=== PATIENT | female | born 1990 | race African-American/Black ===

== ENCOUNTER 2020-07-14 03:54 | Inpatient (IN) ==
[2020-07-14] MEDS ORDERED: ONDANSETRON 4 MG/2 ML VIAL IV PRN ×2 (04:15→06:55)
[2020-07-14] MEDS ORDERED: MEPERIDINE 50 MG/1 ML VIAL IV PRN (04:15)
[2020-07-14] MEDS ORDERED: BUTORPHANOL 2 MG/ML VIAL IV PRN (04:15)
[2020-07-14] MEDS: LACTATED RINGERS 1,000 ML IV SCH ×2 (04:20→06:32)
[2020-07-14] MEDS ORDERED: AMPICILLIN 2,000 MG VIAL ONE (04:29)
[2020-07-14] MEDS ORDERED: AMPICILLIN INJ 2,000 MG in SODIUM CHLORIDE 0.9% 100 ML IV ONE (04:30)
[2020-07-14 05:13] LABS: Basophils % 0.1 % (0.0-0.8); Eosinophils % 0.4 % (0.00-10.9); Hematocrit 37.6 VOL% (35.7-47.0); Immature Granulocytes % 0.5 %; Immature Granulocytes Absolute 0.04 #; Lymphocytes % 24.7 % (21.3-54.2); Mean Corpuscular HGB Conc 31.9 GM/DL (32-36); Mean Corpuscular Volume 85.5 FL (87-102); Mean Platelet Volume 11.7 FL (9.6-12.0); Monocytes % 8.4 % (1.7-12.7); Neutrophils % 65.9 % (38.7-73.9); Platelet Count 218 T/CUMM (130-400); White Blood Count 8.2 T/CUMM (4-12)
[2020-07-14 05:36] LABS: Albumin 2.6 G/DL (3.4-5.0); Calcium 9.9 MG/DL (8.5-10.1); Osmolality,Calculated 273.5 MOS/KG (273-304); Potassium 3.8 MMOL/L (3.5-5.1); Total Protein 6.9 G/DL (6.4-8.2)
[2020-07-14] MEDS ORDERED: miSOPROStoL 200 MCG TABLET ONE (06:34)
[2020-07-14] MEDS ORDERED: OXYTOCIN/LR 20 UNIT/1,000 ML BAG IV ONE ×2 (06:35→06:55)
[2020-07-14] MEDS ORDERED: METHYLERGONOVINE 0.2 MG/1 ML AMP ONE (06:35)
[2020-07-14] MEDS ORDERED: LIDOCAINE 1% 50 ML VIAL ONE (06:37)
[2020-07-14] MEDS ORDERED: ACETAMINOPHEN 325 MG TABLET PO PRN (06:55)
[2020-07-14] MEDS ORDERED: BISACODYL 10 MG SUPP RECTAL PRN (06:55)
[2020-07-14] MEDS ORDERED: LANOLIN 50% CREAM 0.3 OZ TUBE TOP PRN (06:55)
[2020-07-14] MEDS ORDERED: HYDROCORTISONE 2.5% RECTAL CREAM 30 GM TUBE TOP PRN (06:55)
[2020-07-14] MEDS ORDERED: DIPH/TET/ACEL PERT BOOSTER VACCINE 0.5 ML VIAL IM ONE (06:55)
[2020-07-14] MEDS ORDERED: WITCH HAZEL PADS 100/JAR TOP PRN (06:55)
[2020-07-14] MEDS ORDERED: RHO(D) IMMUNE GLOBULIN 300 MCG SYRINGE IM ONE (06:55)
[2020-07-14] MEDS ORDERED: BENZOCAINE 20%/MENTHOL 0.5% SPRAY 56 GM CAN TOP PRN (06:55)
[2020-07-14] MEDS ORDERED: MEASLES/MUMPS/RUBELLA VACCINE 0.5 ML VIAL SUBCUT ONE (06:55)
[2020-07-14] MEDS ORDERED: oxyCODONE/ACETAMINOPHEN 5-325 MG TABLET PO PRN ×2 (06:55)
[2020-07-14 06:59] LABS: Cord Venous Blood PCO2 42.1 MMHG; Cord Venous Blood PO2 25.7
[2020-07-14] MEDS ORDERED: AMPICILLIN INJ 1,000 MG in SODIUM CHLORIDE 0.9% 100 ML IV SCH (08:30)
[2020-07-14] MEDS ORDERED: ALUMINUM/MAGNES/SIMETH MAX STR 30 ML UDCUP PO PRN (17:11)
[2020-07-14] MEDS: DOCUSATE SODIUM 100 MG CAPSULE PO SCH (22:08)
[2020-07-14] MEDS: IBUPROFEN 800 MG TABLET PO PRN (22:08)
[2020-07-15 05:43] LABS: Basophils % 0.3 % (0.0-0.8); Eosinophils # 0.1 10*3/uL (0.0-0.87); Eosinophils % 0.7 % (0.00-10.9); Hematocrit 32.8 VOL% (35.7-47.0); Hemoglobin 11.2 GM/DL (12.0-16.0); Immature Granulocytes % 0.4 %; Immature Granulocytes Absolute 0.04 #; Lymphocytes # 2.5 10*3/uL (1.4-4.0); Lymphocytes % 22.9 % (21.3-54.2); Mean Corpuscular HGB Conc 34.1 GM/DL (32-36); Mean Corpuscular Volume 83.2 FL (87-102); Mean Platelet Volume 11.7 FL (9.6-12.0); Monocytes % 7.4 % (1.7-12.7); Neutrophils % 68.3 % (38.7-73.9); Platelet Count 191 T/CUMM (130-400); Red Blood Count 3.94 MC/CUMM (3.8-5.5); Red Cell Distribution Width 13.9 % (9.3-17.3); White Blood Count 10.7 T/CUMM (4-12)
[2020-07-15] MEDS: DOCUSATE SODIUM 100 MG CAPSULE PO SCH ×2 (08:40→21:39)
[2020-07-15] MEDS: IBUPROFEN 800 MG TABLET PO PRN ×2 (08:40→17:05)
[2020-07-16] MEDS: DOCUSATE SODIUM 100 MG CAPSULE PO SCH (09:12)
[2020-07-16] MEDS: IBUPROFEN 800 MG TABLET PO PRN (09:59)
[2020-07-16 12:36] VITALS: BP 100/57
== END 2020-07-16 13:30 | disposition home or self-care (01) | DRG 560 ==
LOC: N.LDOUT 03:54 → N.LD 03:56 → N.OB 10:50
PROVIDERS: ADMIT Obstetrics & Gynecology; ATTEND Obstetrics & Gynecology